=== PATIENT | female | born 1995 | race Hispanic/Latino ===

== ENCOUNTER 2018-05-13 02:46 | Inpatient (IN) | payer BC, MEDICAID ==
[2018-05-13] MEDS ORDERED: ZOFRAN IV PRN ×2 (03:26→15:04)
[2018-05-13] MEDS ORDERED: XYLOCAINE 2% INFILTRATI ONE (03:26)
[2018-05-13] MEDS ORDERED: BRETHINE SUB-Q PRN (03:26)
[2018-05-13] MEDS ORDERED: MINERAL OIL PO PRN (03:26)
[2018-05-13] MEDS ORDERED: SUBLIMAZE IV PRN (03:26)
--- NOTE | 2018-05-13 03:37 | History and Physical Report ---
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 Past Medical History Abnormal PAP: negative MIROSLAVA Exposure: negative Infertility: negative Uterine Anomaly: negative Uterine Surgery (not C/S): negative Other Gynecologic Problems: negative Family Hx: younger Sister CP Social Hx: Patient is Smoking History: Patient has never smoked. Infection History Hx of STD: none HIV Risk Eval: low risk Hepatitis B Risk Eval: low risk Personal hx. of genital herpes: no Partner hx. of genital herpes: no Rash, Viral, or Febrile illness since last LMP? no Varicella/Chicken Pox Status: Previous Disease TB Risk: no Genetic History Congenital Heart Defect: Mom: no Dad: no Day Disease: Mom: no Dad: no Thalassemia Mom: no Dad: no Neural Tube Defect Mom: no Dad: no Down's Syndrome Mom: no Dad: no Solitario-Sachs Mom: no Dad: no Sickle Cell Disease/Trait Mom: no Dad: no Hemophilia Mom: no Dad: no Muscular Dystrophy Mom: no Dad: no Cystic Fibrosis Mom: no Dad: no Leslie Chorea Mom: no Dad: no Mental Retardation Mom: no Dad: no Fragile X Mom: no Dad: no Other Genetic/Chromosomal Disorder Mom: no Dad: no Child w/other defect Mom: no Dad: no Enviromental Exposures Xray Exposure: no Medication, drug, or alcohol use since LMP: no Chemical/Other Exposure: no Exposure to Cat Liter: no Hx of Parvovirus (Fifth Disease): no Occupational Exposure to Children: none Current Allergies (reviewed today): * SYNTHETIC MEDICATIONS (Mild) Past History - Obstetrical History Expected Date of Delivery: 05/25/18 Actual Gestation: 38 Week(s) 2 Day(s) : 1 Para: 0 Number of Living Children: 0 Medications and Allergies Allergies Allergy/AdvReac Type Severity Reaction Status Date / Time sulfamethoxazole Allergy Rash Verified 02/13/16 07:21 Home Medications Medication Instructions Recorded Confirmed Last Taken Type Nystatin 1 tab PO BID 02/07/16 02/13/16 02/09/16 History Acetaminophen [Shake That Ache] 500 mg PO PRN PRN 02/13/16 02/13/16 02/10/16 History Bifidobacterium Infantis 1 each PO DAILY 02/13/16 02/13/16 02/12/16 History [Digestive Probiotic] Ciprofloxacin/Ciprofloxa HCl 1,000 mg PO QDAY #7 tbmp.24hr 02/13/16 Unknown Rx [Cipro XR TAB] Diphenhydramine HCl [Benadryl 25 mg PO PRN PRN 02/13/16 02/13/16 02/12/16 History Allergy TAB] Dm/PE/Acetaminophen/Doxylamine 30 ml PO PRN PRN 02/13/16 02/13/16 02/11/16 History [Vicks Dayquil-Nyquil Cold-Flu] Ibuprofen [Motrin] 200 mg PO Q6H PRN 02/13/16 02/13/16 02/11/16 History - Vital Signs Vital signs: Vital Signs Pulse BP 98 H 123/89 05/13/18 03:04 05/13/18 03:04 Temp Pulse Resp BP Pulse Ox 98.1 F 98 H 18 123/89 05/13/18 03:15 05/13/18 03:15 05/13/18 03:15 05/13/18 03:15 - Physical Exam Breasts: Positive: deferred Cardiovascular: Regular rate, Normal S1, Normal S2 Lungs: Positive: Normal air movement Abdomen: Positive: normal appearance, soft, normal bowel sounds. Negative: distention, tenderness Genitourinary (Female): Positive: normal external genitalia, other (clear fluid ; Nitrazine +) Vulva: both: normal Vagina: Positive: normal moisture. Negative: discharge Cervix: Negative: lesion, discharge Uterus: Positive: normal size, normal contour Adnexa: both: normal Anus/Rectum: Positive: normal perianal skin, heme negative. Negative: rectal mass, hemorrhoids Extremities: Deep Tendon Reflex Grade: Normal +2 - Obstetrical FHR: category 1 Uterine Contraction Monitor Mode: External Cervical Dilatation: 2.5 (clear fluid) Cervical Effacement Percentage: 70 station: -1 Uterine Contraction Pattern: Irregular Uterine Tone Measurement Phase: Resting Uterine Contraction Intensity: Moderate Results Result Diagrams: 05/13/18 03:25 All other labs normal. GBS Negative Current OB Labs Blood Type: O (09/25/2017) Rh Type: negative (09/25/2017) Rh Antibody Screen: negative (09/25/2017) Hgb: 12.9 (09/25/2017) Hct: 38.5 (09/25/2017) Platelets: 173 (09/25/2017) Rubella: immune (09/25/2017) RPR: nonreactive (09/25/2017) Hep B Surface Antigen: negative (09/25/2017) HIV: negative (09/25/2017) Pap Smear: abnormal (09/25/2017) Assessment and Plan 22yo @ 38 weeks with SROM clear fluid GBS negative Orders in EMR
[2018-05-13 03:58] LABS: Hematocrit 35.1 % (30.3-42.9); Hemoglobin 11.9 gm/dl (10.1-14.3); Mean Corpuscular HGB Conc 34 % (30-34); Mean Corpuscular Hemoglobin 29 pg (28-32); Mean Corpuscular Volume 85 fl (79-97); Platelet Count 126 K/mm3 (140-440); Red Blood Count 4.11 M/mm3 (3.65-5.03); Red Cell Distribution Width 13.3 % (13.2-15.2)
[2018-05-13] MEDS ORDERED: PITOCin/NS 20 UNIT/1000ML DRIP 20 UNITS/1,000 ML BAG IV SCH (04:00)
[2018-05-13] MEDS ORDERED: LACTATED RINGERS 1,000 ML IV SCH (04:00)
[2018-05-13] MEDS: PITOCin/NS 30 UNIT/500ML 30 UNITS/500 ML BAG IV SCH ×2 (05:58→08:09)
--- NOTE | 2018-05-13 07:25 | Progress Note ---
Assessment and Plan Pt tolerating labor well Pit per protocol Re-eval as needed. Subjective - Subjective Date of service: 05/13/18 (pt tolerating labor well) Principal diagnosis: IUP @ 38 weeks with SROM Patient reports: movement normal, contractions Objective - Vital Signs Vital Signs: Vital Signs - 12hr 05/13/18 05/13/18 05/13/18 03:04 03:15 04:45 Temperature 98.1 F 98.7 F Pulse Rate 98 H 98 H Respiratory 18 18 Rate Blood Pressure 123/89 Blood Pressure 123/89 [Left] O2 Sat by Pulse Oximetry 05/13/18 05/13/18 05/13/18 05:23 05:28 05:33 Temperature Pulse Rate 80 77 81 Respiratory Rate Blood Pressure Blood Pressure [Left] O2 Sat by Pulse 96 96 96 Oximetry 05/13/18 05/13/18 05/13/18 05:38 05:43 05:48 Temperature Pulse Rate 84 85 78 Respiratory Rate Blood Pressure Blood Pressure [Left] O2 Sat by Pulse 97 97 99 Oximetry 05/13/18 05/13/18 05/13/18 05:53 05:58 06:03 Temperature Pulse Rate 80 89 87 Respiratory Rate Blood Pressure 132/90 Blood Pressure [Left] O2 Sat by Pulse 97 96 97 Oximetry 05/13/18 05/13/18 05/13/18 06:08 06:13 06:18 Temperature Pulse Rate 83 79 89 Respiratory Rate Blood Pressure Blood Pressure [Left] O2 Sat by Pulse 98 98 97 Oximetry 05/13/18 05/13/18 05/13/18 06:23 06:28 06:33 Temperature Pulse Rate 82 90 90 Respiratory Rate Blood Pressure Blood Pressure [Left] O2 Sat by Pulse 98 100 98 Oximetry 05/13/18 05/13/18 05/13/18 06:38 06:43 06:45 Temperature Pulse Rate 81 89 81 Respiratory Rate Blood Pressure Blood Pressure [Left] O2 Sat by Pulse 98 96 94 Oximetry 05/13/18 05/13/18 05/13/18 06:48 07:01 07:06 Temperature Pulse Rate 87 80 85 Respiratory Rate Blood Pressure Blood Pressure [Left] O2 Sat by Pulse 96 98 96 Oximetry 05/13/18 05/13/18 05/13/18 07:11 07:16 07:21 Temperature Pulse Rate 88 86 95 H Respiratory Rate Blood Pressure Blood Pressure [Left] O2 Sat by Pulse 98 97 97 Oximetry - Exam Breasts: deferred Cardiovascular: Regular rate Abdomen: Present: normal appearance, soft. Absent: distention, tenderness Uterus: Present: normal FHR: auscultation normal, category 1 Uterine Contraction Monitor Mode: External Cervical Dilatation: 3 Cervical Effacement Percentage: 90 station: 0 Uterine Contraction Pattern: Regular Uterine Tone Measurement Phase: Resting Uterine Contraction Intensity: Moderate Extremities: normal Deep Tendon Reflex Grade: Normal +2 - Labs Labs: Abnormal Labs 05/13/18 03:25 Plt Count 126 L Laboratory Results - last 24 hr 05/13/18 05/13/18 03:25 03:25 WBC 9.3 RBC 4.11 Hgb 11.9 Hct 35.1 MCV 85 MCH 29 MCHC 34 RDW 13.3 Plt Count 126 L Blood Type O NEGATIVE Antibody Screen Positive Antibody Identification Anti-D (Passively Aquired)
--- NOTE | 2018-05-13 10:16 | Anesthesia Consultation ---
Anesthesia Consult and Med Hx Date of service: 05/13/18 - Airway Anesthetic Teeth Evaluation: Good ROM Head & Neck: Adequate Mental/Hyoid Distance: Adequate Mallampati Class: Class II Intubation Access Assessment: Probably Good - Pre-Operative Health Status ASA Pre-Surgery Classification: ASA2 Proposed Anesthetic Plan: Epidural, Spinal - Pulmonary Hx Asthma: No COPD: No Hx Pneumonia: No - Cardiovascular System Hx Hypertension: No - Central Nervous System Hx Seizures: No Hx Psychiatric Problems: No - Endocrine Hx Renal Disease: No Hx End Stage Renal Disease: No Hx Hypothyroidism: No Hx Hyperthyroidism: No - Hematic Hx Anemia: No Hx Sickle Cell Disease: No - Other Systems Hx Alcohol Use: No Hx Cancer: No
[2018-05-13] MEDS ORDERED: NARCAN 2 MG/2 ML IV PRN (10:30)
[2018-05-13] MEDS ORDERED: fentaNYL-BUPIV 2 MCG/ML-0.125% 200 MCG/100 ML BAG EPIDURAL SCH (11:00)
--- NOTE | 2018-05-13 12:35 | Progress Note ---
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 Past Medical History Abnormal PAP: negative MIROSLAVA Exposure: negative Infertility: negative Uterine Anomaly: negative Uterine Surgery (not C/S): negative Other Gynecologic Problems: negative Family Hx: younger Sister CP Social Hx: Patient is Smoking History: Patient has never smoked. Infection History Hx of STD: none HIV Risk Eval: low risk Hepatitis B Risk Eval: low risk Personal hx. of genital herpes: no Partner hx. of genital herpes: no Rash, Viral, or Febrile illness since last LMP? no Varicella/Chicken Pox Status: Previous Disease TB Risk: no Genetic History Congenital Heart Defect: Mom: no Dad: no Day Disease: Mom: no Dad: no Thalassemia Mom: no Dad: no Neural Tube Defect Mom: no Dad: no Down's Syndrome Mom: no Dad: no Solitario-Sachs Mom: no Dad: no Sickle Cell Disease/Trait Mom: no Dad: no Hemophilia Mom: no Dad: no Muscular Dystrophy Mom: no Dad: no Cystic Fibrosis Mom: no Dad: no [place]ezar Chorea Mom: no Dad: no Mental Retardation Mom: no Dad: no Fragile X Mom: no Dad: no Other Genetic/Chromosomal Disorder Mom: no Dad: no Child w/other defect Mom: no Dad: no Enviromental Exposures Xray Exposure: no Medication, drug, or alcohol use since LMP: no Chemical/Other Exposure: no Exposure to Cat Liter: no Hx of Parvovirus (Fifth Disease): no Occupational Exposure to Children: none Current Allergies (reviewed today): * SYNTHETIC MEDICATIONS (Mild) Patient reports: movement normal, contractions Objective - Vital Signs Vital Signs: Vital Signs - 12hr 05/13/18 05/13/18 05/13/18 03:04 03:15 04:45 Temperature 98.1 F 98.7 F Pulse Rate 98 H 98 H Respiratory 18 18 Rate Blood Pressure 123/89 Blood Pressure 123/89 [Left] O2 Sat by Pulse Oximetry 05/13/18 05/13/18 05/13/18 05:23 05:28 05:33 Temperature Pulse Rate 80 77 81 Respiratory Rate Blood Pressure Blood Pressure [Left] O2 Sat by Pulse 96 96 96 Oximetry 05/13/18 05/13/18 05/13/18 05:38 05:43 05:48 Temperature Pulse Rate 84 85 78 Respiratory Rate Blood Pressure Blood Pressure [Left] O2 Sat by Pulse 97 97 99 Oximetry 05/13/18 05/13/18 05/13/18 05:53 05:58 06:03 Temperature Pulse Rate 80 89 87 Respiratory Rate Blood Pressure 132/90 Blood Pressure [Left] O2 Sat by Pulse 97 96 97 Oximetry 05/13/18 05/13/18 05/13/18 06:08 06:13 06:18 Temperature Pulse Rate 83 79 89 Respiratory Rate Blood Pressure Blood Pressure [Left] O2 Sat by Pulse 98 98 97 Oximetry 05/13/18 05/13/18 05/13/18 06:23 06:28 06:33 Temperature Pulse Rate 82 90 90 Respiratory Rate Blood Pressure Blood Pressure [Left] O2 Sat by Pulse 98 100 98 Oximetry 05/13/18 05/13/18 05/13/18 06:38 06:43 06:45 Temperature Pulse Rate 81 89 81 Respiratory Rate Blood Pressure Blood Pressure [Left] O2 Sat by Pulse 98 96 94 Oximetry 05/13/18 05/13/18 05/13/18 06:48 07:01 07:06 Temperature Pulse Rate 87 80 85 Respiratory Rate Blood Pressure Blood Pressure [Left] O2 Sat by Pulse 96 98 96 Oximetry 05/13/18 05/13/18 05/13/18 07:11 07:16 07:21 Temperature Pulse Rate 88 86 95 H Respiratory Rate Blood Pressure Blood Pressure [Left] O2 Sat by Pulse 98 97 97 Oximetry 05/13/18 05/13/18 05/13/18 07:26 07:31 07:36 Temperature Pulse Rate 91 H 92 H 81 Respiratory Rate Blood Pressure Blood Pressure [Left] O2 Sat by Pulse 97 98 98 Oximetry 05/13/18 05/13/18 05/13/18 07:41 07:46 07:51 Temperature Pulse Rate 90 95 H 89 Respiratory Rate Blood Pressure Blood Pressure [Left] O2 Sat by Pulse 98 98 98 Oximetry 05/13/18 05/13/18 05/13/18 07:56 07:58 08:00 Temperature 98.5 F Pulse Rate 87 87 82 Respiratory 16 Rate Blood Pressure 129/80 Blood Pressure 129/80 [Left] O2 Sat by Pulse 98 97 Oximetry 05/13/18 05/13/18 05/13/18 08:01 08:06 08:11 Temperature Pulse Rate 82 98 H 93 H Respiratory Rate Blood Pressure Blood Pressure [Left] O2 Sat by Pulse 98 98 98 Oximetry 05/13/18 05/13/18 05/13/18 08:16 08:21 08:26 Temperature Pulse Rate 90 84 89 Respiratory Rate Blood Pressure Blood Pressure [Left] O2 Sat by Pulse 98 96 98 Oximetry 05/13/18 05/13/18 05/13/18 08:31 08:36 08:41 Temperature Pulse Rate 91 H 99 H 87 Respiratory Rate Blood Pressure Blood Pressure [Left] O2 Sat by Pulse 97 96 98 Oximetry 05/13/18 05/13/18 05/13/18 09:59 10:04 10:05 Temperature Pulse Rate 101 H 96 H 51 L Respiratory Rate Blood Pressure Blood Pressure [Left] O2 Sat by Pulse 97 96 88 Oximetry 05/13/18 05/13/18 05/13/18 10:06 10:08 10:09 Temperature Pulse Rate 96 H 88 93 H Respiratory Rate Blood Pressure 115/71 119/74 Blood Pressure [Left] O2 Sat by Pulse 89 Oximetry 05/13/18 05/13/18 05/13/18 10:11 10:12 10:14 Temperature Pulse Rate 93 H 87 88 Respiratory Rate Blood Pressure 111/82 117/76 111/76 Blood Pressure [Left] O2 Sat by Pulse Oximetry 05/13/18 05/13/18 05/13/18 10:16 10:18 10:21 Temperature Pulse Rate 85 96 H 111 H Respiratory Rate Blood Pressure 120/78 120/81 120/64 Blood Pressure [Left] O2 Sat by Pulse Oximetry 05/13/18 05/13/18 05/13/18 10:23 10:25 10:26 Temperature Pulse Rate 94 H 90 89 Respiratory Rate Blood Pressure 140/75 111/62 111/72 Blood Pressure [Left] O2 Sat by Pulse Oximetry 05/13/18 05/13/18 05/13/18 10:57 11:29 11:57 Temperature Pulse Rate 80 76 93 H Respiratory Rate Blood Pressure 120/73 112/71 111/69 Blood Pressure [Left] O2 Sat by Pulse Oximetry 05/13/18 12:28 Temperature Pulse Rate 105 H Respiratory Rate Blood Pressure 131/76 Blood Pressure [Left] O2 Sat by Pulse Oximetry - Exam Breasts: deferred Cardiovascular: Regular rate Lungs: Normal air movement Abdomen: Present: normal appearance, soft. Absent: distention, tenderness Uterus: Present: normal FHR: auscultation normal Uterine Contraction Monitor Mode: Internal Cervical Dilatation: 10 Cervical Effacement Percentage: 100 station: 0 Uterine Contraction Pattern: Regular Uterine Contraction Intensity: Moderate Extremities: normal Deep Tendon Reflex Grade: Normal +2 - Labs Labs: Abnormal Labs 05/13/18 03:25 Plt Count 126 L Laboratory Results - last 24 hr 05/13/18 05/13/18 05/13/18 03:25 03:25 03:25 WBC 9.3 RBC 4.11 Hgb 11.9 Hct 35.1 MCV 85 MCH 29 MCHC 34 RDW 13.3 Plt Count 126 L RPR Nonreactive Blood Type O NEGATIVE Antibody Screen Positive Antibody Identification Anti-D (Passively Aquired)
[2018-05-13] MEDS ORDERED: XYLOCAINE MPF 2% ONE ×2 (14:06→14:46)
[2018-05-13] MEDS ORDERED: METHERGINE IM ONE ×2 (14:10→15:03)
[2018-05-13] MEDS ORDERED: XYLOCAINE 2%/ EPI 1:200,000 INFILTRATI ONE (14:42)
[2018-05-13] MEDS ORDERED: DULCOLAX PR PRN (15:04)
[2018-05-13] MEDS ORDERED: PHENERGAN PO PRN (15:04)
[2018-05-13] MEDS ORDERED: PERCOCET 5/325 PO PRN (15:04)
[2018-05-13] MEDS ORDERED: NORCO 5/325 PO PRN (15:04)
[2018-05-13] MEDS ORDERED: BENADRYL PO PRN (15:04)
[2018-05-13] MEDS ORDERED: PHENERGAN PR PRN (15:04)
[2018-05-13] MEDS ORDERED: TUCKS PAD TP PRN (15:04)
[2018-05-13] MEDS ORDERED: TYLENOL PO PRN (15:04)
[2018-05-13] MEDS ORDERED: MILK OF MAGNESIA PO PRN (15:04)
[2018-05-13] MEDS ORDERED: SODIUM CHLORIDE FLUSH SYRINGE 10 ML IV SCH (16:00)
--- NOTE | 2018-05-13 16:21 | Procedure Note ---
OB Delivery Note - Delivery Date of Delivery: 05/13/18 Tool Maintenance Worker: ISAMAR BELTRÁN Estimated blood loss: 500cc - Vaginal Delivery presentation: vertex Delivery position: OP Intrapartum events: none Delivery induction: none Delivery augmentation: pitocin Delivery monitor: internal FHT, internal uterine Route of delivery: Delivery placenta: spontaneous Delivery cord: nuchal cord, 3 umbilical vessels Episiotomy: midline Delivery laceration: 4th degree (laceration repaired in the usual fashion; rectal mucosa examined after repain, intact) Delivery repair: vicryl Anesthesia: epidural Delivery comments: over second degree episiotomy CAN X 1 reduced Baby to mom's abdomen skin to skin Cord clamped and cut baby to warmer. Cord blood obtained Placenta and membrane del complete and intact, 3 vessel cord. Pit IVFs. 4th degree laceration noted. Lower uterine segment boggy, several mod clots removed. Methergin IM given. 3 raytech sponges placed in vagina after count of 10. 4th Repaired over Lidocaine with 3-0 and 2-0 vicryl in usual fashion. Rectal mucosa examined after repair intact. Sponges removed Count completed 10. 8/9, EBL 500, Wgt 7-11. Mom and baby remain LDR stable. FF @ umb Lochia moderate. Perineum swollen intact, ice pack in place. - Infant A at 1 minute: 8 at 5 minutes: 9 Gender: Female (wgt 7-11)
[2018-05-13] MEDS: MOTRIN PO SCH ×2 (17:50→23:02)
[2018-05-13] MEDS: METHERGINE PO SCH (18:20)
[2018-05-13] MEDS: DERMOPLAST TP PRN (18:21)
[2018-05-13] MEDS ORDERED: METHERGINE PO SCH (22:00)
[2018-05-14] MEDS: METHERGINE PO SCH ×2 (04:24→13:11)
[2018-05-14] MEDS: MOTRIN PO SCH ×4 (05:05→23:31)
[2018-05-14] MEDS: LANSINOH TP PRN (05:05)
[2018-05-14 05:35] LABS: Hematocrit 30.7 % (30.3-42.9); Hemoglobin 10.8 gm/dl (10.1-14.3)
[2018-05-14] MEDS ORDERED: BOOSTRIX IM ONE (06:00)
--- NOTE | 2018-05-14 06:51 | Progress Note ---
Assessment and Plan Pt w/o complaints VSS FF below umb Lochia small perineum swollen intact. Pt voiding w/o difficulty. H&H 06/24 stable No s/sx of anemia Doing well s/p vag delivery 4th degree. 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 Past Medical History Abnormal PAP: negative MIROSLAVA Exposure: negative Infertility: negative Uterine Anomaly: negative Uterine Surgery (not C/S): negative Other Gynecologic Problems: negative Family Hx: younger Sister CP Social Hx: Patient is Smoking History: Patient has never smoked. Infection History Hx of STD: none HIV Risk Eval: low risk Hepatitis B Risk Eval: low risk Personal hx. of genital herpes: no Partner hx. of genital herpes: no Rash, Viral, or Febrile illness since last LMP? no Varicella/Chicken Pox Status: Previous Disease TB Risk: no Genetic History Congenital Heart Defect: Mom: no Dad: no Day Disease: Mom: no Dad: no Thalassemia Mom: no Dad: no Neural Tube Defect Mom: no Dad: no Down's Syndrome Mom: no Dad: no Solitario-Sachs Mom: no Dad: no Sickle Cell Disease/Trait Mom: no Dad: no Hemophilia Mom: no Dad: no Muscular Dystrophy Mom: no Dad: no Cystic Fibrosis Mom: no Dad: no [place] Chorea Mom: no Dad: no Mental Retardation Mom: no Dad: no Fragile X Mom: no Dad: no Other Genetic/Chromosomal Disorder Mom: no Dad: no Child w/other defect Mom: no Dad: no Enviromental Exposures Xray Exposure: no Medication, drug, or alcohol use since LMP: no Chemical/Other Exposure: no Exposure to Cat Liter: no Hx of Parvovirus (Fifth Disease): no Occupational Exposure to Children: none Current Allergies (reviewed today): * SYNTHETIC MEDICATIONS (Mild) Patient reports: appetite normal, voiding normally, pain well controlled, ambulating normally Chloride: in NICU (transition) Objective - Vital Signs Latest vital signs: Vital Signs Temp Pulse Resp BP BP Pulse Ox 05/14/18 00:00 98.7 F 74 18 107/74 18 19:30 98.7 F 74 18 104/78 18 17:16 97.6 F 91 H 16 128/87 97 1818 15:25 78 135/60 05/13/18 15:11 85 149/51 05/13/18 14:55 88 124/75 05/13/18 14:40 86 120/61 05/13/18 14:25 77 117/59 05/13/18 14:11 113 H 115/59 05/13/18 14:10 113 H 120/79 05/13/18 13:58 137 H 113/59 05/13/18 13:28 100 H 143/84 05/13/18 12:57 102 H 134/80 05/13/18 12:28 105 H 131/76 05/13/18 11:57 93 H 111/69 05/13/18 11:29 76 112/71 05/13/18 10:57 80 120/73 18 10:26 89 111/72 18 10:25 90 111/62 18 10:23 94 H 140/75 05/13/18 10:21 111 H 120/64 05/13/18 10:18 96 H 120/81 18 10:16 85 120/78 18 10:14 88 111/76 18 10:12 87 117/76 05/13/18 10:11 93 H 111/82 05/13/18 10:09 93 H 89 05/13/18 10:08 88 119/74 05/13/18 10:06 96 H 115/71 05/13/18 10:05 51 L 88 05/13/18 10:04 96 H 96 05/13/18 09:59 101 H 97 05/13/18 08:41 87 98 05/13/18 08:36 99 H 96 05/13/18 08:31 91 H 97 18 08:26 89 98 18 08:21 84 96 18 08:16 90 98 18 08:11 93 H 98 05/13/18 08:06 98 H 98 18 08:01 82 98 05/13/18 08:00 82 129/80 18 07:58 98.5 F 87 16 129/80 97 18 07:56 87 98 18 07:51 89 98 18 07:46 95 H 98 18 07:41 90 98 18 07:36 81 98 05/13/18 07:31 92 H 98 05/13/18 07:26 91 H 97 05/13/18 07:21 95 H 97 18 07:16 86 97 18 07:11 88 98 18 07:06 85 96 05/13/18 07:01 80 98 05/13/18 06:48 87 96 Intake and Output 18 1818 05/14/18 14:59 22:59 06:59 Intake Total 8.733 300 Output Total 750 900 Balance -741.267 -600 Intake: IV 8.733 PITOCin/NS 30 UNIT/500ML 8.733 30 units In 500 ml @ 4 mls/hr IV Q30MIN [facility] Rx#: [id number] Intake, Free Water 300 Output: Urine 750 900 Indwelling Catheter 750 Void 900 Other: Total, Output Amount 750 900 # Voids Void 1 Estimated Blood Loss 500 - Exam Breasts: Present: normal, Cardiovascular: Present: Regular rate Lungs: Present: Normal air movement Abdomen: Present: normal appearance, soft, normal bowel sounds Vulva: both: laceration/episiotomy (swollen intact) Uterus: Present: normal, fundal height below umbilicus Extremities: Present: normal Deep Tendon Reflex Grade: Normal +2 Incision: Present: normal, dry, edematous, intact
[2018-05-14] MEDS ORDERED: M-M-R II VACCINE SUB-Q ONE (15:04)
[2018-05-14] MEDS: COLACE PO SCH (22:23)
[2018-05-15] MEDS: MOTRIN PO SCH ×2 (05:10→12:05)
--- NOTE | 2018-05-15 06:04 | Discharge Summary ---
Providers - Providers Date of Admission: 05/13/18 04:13 Date of discharge: 05/15/18 (pt desires d/c) Attending physician: JENNIFER MALLOY Primary care physician: JENNIFER MALLOY Hospitalization Reason for admission: rupture of membranes Delivery: Episiotomy: midline Laceration: 4th degree Incision: normal, dry, edematous, intact Other procedures: none complications: none Discharge diagnosis: IUP at term delivered baby: female Hospital course: vaginal delivery complicated by a 4th degree laceration Pt awake resting FOB holding NB VSS FF below umb Lochia scant perineum swollen intact. Wound care discussed. Doing well s/p vag delivery P: d/c today with instructions RTO 2 weeks for postop visit. RX Motrin provided. Condition at discharge: Good Disposition: DC-01 TO HOME OR SELFCARE - Discharge Diagnoses (1) Fourth degree perineal laceration during delivery Status: Acute Comment: RTO 2 weeks for evaluation of healing Plan - Provider Discharge Summary Activity: routine, no sex for 6 weeks, no heavy lifting 4 weeks, no strenuous exercise Diet: routine Instructions: routine Additional instructions: [] Smoking cessation referral if applicable(refer to patient education folder for contact #) [] Refer to [facility]'s [facility] Booklet Call your doctor immediately for: * Fever > 100.5 * Heavy vaginal bleeding ( >1 pad per hour) * Severe persistent headache * Shortness of breath * Reddened, hot, painful area to leg or breast * Drainage or odor from incision. * Keep incision clean and dry at all times and follow doctor's instructions regarding bathing/showering - Follow up plan Follow up: JENNIFER MALLOY MD [Primary Care Provider] - 14 Days (Congratulations! Please call [phone] to schedule an appointment in 2 weeks for postoperative visit. Take medication as prescribed. Call with any concerns.)
[2018-05-15] MEDS: COLACE PO SCH (10:48)
[2018-05-15] MEDS: DERMOPLAST TP PRN (12:06)
[2018-05-15] MEDS: LANSINOH TP PRN (12:06)
[2018-05-15 13:01] VITALS: BP 119/79
== END 2018-05-15 13:05 | disposition home or self-care (01) | DRG 775 ==
LOC: TRG 02:46 → LD 04:13 → OB 17:28
PROVIDERS: ADMIT Obstetrics & Gynecology; ATTEND Obstetrics & Gynecology
PROC: 10E0XZZ Delivery of Products of Conception, External Approach (ICD-10-PCS; principal; 2018-05-13)
PROC: 0DQP0ZZ Repair Rectum, Open Approach (ICD-10-PCS; 2018-05-13)
PROC: 0W8NXZZ Division of Female Perineum, External Approach (ICD-10-PCS; 2018-05-13)
PROC: 3E0R3BZ Introduction of Anesthetic Agent into Spinal Canal, Percutaneous Approach (ICD-10-PCS; 2018-05-13)
PROC: 00HU33Z Insertion of Infusion Device into Spinal Canal, Percutaneous Approach (ICD-10-PCS; 2018-05-13)
PROC: 3E0234Z Introduction of Serum, Toxoid and Vaccine into Muscle, Percutaneous Approach (ICD-10-PCS; 2018-05-14)
DX: O69.81X0 Labor and delivery complicated by cord around neck, without compression, not applicable or unspecified (principal); O70.3 Fourth degree perineal laceration during delivery; Z37.0 Single live birth; Z3A.38 38 weeks gestation of pregnancy; Z80.41 Family history of malignant neoplasm of ovary; Z88.2 Allergy status to sulfonamides; Z67.41 Type O blood, Rh negative; Z23 Encounter for immunization
CPT/HCPCS: 36415; 85014; 85018; 85027; 85461; 86592; 86850; 86870; 86900; 86901; 90471; 90715; 99211; A6250; G0463; J2210; J2590; J7120; Q0169